=== PATIENT | female | born 1975 | race Caucasian/White ===

== ENCOUNTER 2016-11-17 14:25 | Day surgery (SDC) | payer OTHER ==
[~2016-11-17] VITALS: Ht 160 cm; Wt 98.3 kg
[2016-11-17] VITALS (10 sets, daily range): BP systolic 145–166; BP diastolic 65–99; PULSE 56–104; TEMP 98–98.8
[2016-11-17] MEDS ORDERED: NEURONTIN300 MG/CAP PO (15:31)
== END 2016-11-17 21:41 | disposition home or self-care (01) ==
LOC: SDCO 14:25 → SURG 18:54 → SDCO 18:54 → SURG 21:41
DX: N20.1 Calculus of ureter (principal); Z90.721 Acquired absence of ovaries, unilateral; Z82.49 Family history of ischemic heart disease and other diseases of the circulatory system; Z83.3 Family history of diabetes mellitus
CPT/HCPCS: OP; C1769; J0690; J2405; J2704; J3010; J7120; Q9967

== ENCOUNTER 2019-11-07 16:06 | Emergency (ER) | payer OTHER ==
[~2019-11-07] VITALS: Ht 160 cm; Wt 92.7 kg
[~2019-11-07 16:06] MED LIST: NEURONTIN300 MG/CAP PO
[2019-11-07 16:17] VITALS: TEMP 98.8
[2019-11-07 17:15] LABS: BASO # 0.1 (0.0-0.2); BASO % 0.8 % (0.0-2.0); EOS # 0.1 (0.0-0.7); EOS % 0.7 % (0-4.0); GRAN # 6.2 (1.4-6.5); GRAN % 69.7 % (42.2-75.2); HEMOGLOBIN 10.3 g/dl (12.5-16.0); LYMPH # 1.9 (1.2-3.4); LYMPH % 21.8 % (20.0-51.0); MEAN CELL VOLUME 84 fl (80.0-100.0); MEAN CORPUSCULAR HEMOGLOBIN 27 pg (27.0-31.0); MEAN CORPUSCULAR HGB CONC 32 g/dl (33.0-37.0); MEAN PLATELET VOLUME 10.1 fl (7.4-10.4); MONO # 0.6 (0.1-0.6); MONO % 6.6 % (1.7-9.3); PLATELET COUNT 278 K/mm3 (130-400); RED BLOOD COUNT 3.85 M/mm3 (4.10-5.30); REDCELL DISTRIBUTION WIDTH-CV 14.7 % (11.5-14.5)
[2019-11-07 17:19] LABS: COLLECTION METHOD CLEAN CATCH
[2019-11-07 17:23] LABS: ALBUMIN 4.1 gm/dL (3.5-5.0); BILIRUBIN,TOTAL 0.4 mg/dL (0.0-1.0); CALCIUM 9.2 mg/dL (8.4-10.2); CREATININE, serum 0.71 (0.52-1.25); TOTAL PROTEIN 7.8 gm/dL (6.4-8.2)
[2019-11-07 17:26] LABS: HEMATOCRIT 32.4 % (37.0-47.0)
[2019-11-07 17:36] LABS: PH 6 (5-8); URINE APPEARANCE Hazy; URINE BACTERIA None Seen /hpf; URINE BILIRUBIN Negative (NEGATIVE); URINE BLOOD 3+ (NEGATIVE); URINE COLOR Red; URINE GLUCOSE Negative (NEGATIVE); URINE KETONE Negative (NEGATIVE); URINE LEUKOCYTE ESTERASE Negative (NEGATIVE); URINE NITRATE Negative (NEGATIVE); URINE PROTEIN(semi-quant) 2+ (NEGATIVE); URINE RBC >50 /hpf; URINE UROBILINOGEN Negative (NEGATIVE)
[2019-11-07] MEDS ORDERED: ALEVE 220MG220 MG PO (17:36)
[2019-11-07 17:53] LABS: THYROID STIMULATING HORMONE 0.685 uIU/mL (0.465-4.680)
[2019-11-07] MEDS ORDERED: SPRINTEC 35 MCG1 TAB PO (18:58)
[2019-11-07 19:13] VITALS: BP 162/92; PULSE 80
== END 2019-11-07 19:18 | disposition home or self-care (01) ==
LOC: COL.ER 16:06
PROVIDERS: Nurse Practitioner Primary Care
DX: N93.8 Other specified abnormal uterine and vaginal bleeding (principal)